=== PATIENT | female | born 1965 | race Hispanic/Latino ===

== ENCOUNTER 2018-08-19 20:04 | Emergency (ER) | payer OTHER ==
[2018-08-19 20:09] VITALS: BMI 40.7
[2018-08-19 20:26] VITALS: TEMP 98.1
[2018-08-19] MEDS ORDERED: DiphenhydrAMINE 50 mg/ml Inj IM STA (20:31)
[2018-08-19] MEDS ORDERED: DiphenhydrAMINE 50 mg/ml Inj ONE (20:34)
--- NOTE | 2018-08-19 20:35 | ED PDOC ---
HPI: Allergic Reaction Time Seen by Provider: 08/19/18 20:26 Chief Complaint (Nursing): Allergic Reaction History Per: Patient Additional Complaint(s): Pt. states when she woke up this morning she had a diffuse pruritic rash over her body which has progressively worsened. States she's been taking Benadryl 50mg PO without any relief (last dose was at 1400 today). Reports a hx of contact allergic reactions. States she ate clams yesterday which she usually does not eat. Denies throat swelling, chest pain, SOB, fever, chills, hx of anaphylactic reactions. Of note pt. states she has a scheduled appointment with a statement request clerk on Monday for a separate issue. Past Medical History Reviewed: Historical Data, Nursing Documentation, Vital Signs Vital Signs: Last Vital Signs Temp 98.1 F 08/19/18 20:25 Pulse 69 08/19/18 20:25 Resp 16 08/19/18 20:25 BP 130/82 08/19/18 20:25 Pulse Ox 98 08/19/18 20:25 Primary Care Provider: FAMILY PROVIDER,NO - Family History Family History: States: No Known Family Hx - Home Medications Home Medications: Ambulatory Orders Medication Instructions Recorded DiphenhydrAMINE [Benadryl] 50 mg PO Q6 PRN #16 cap 08/19/18 predniSONE [Prednisone] 60 mg PO DAILY #12 tab 08/19/18 - Allergies Allergies/Adverse Reactions: Allergies Allergy/AdvReac Type Severity Reaction Status Date / Time No Known Allergies Allergy Verified 08/19/18 20:23 Review of Systems ROS Statement: Except As Marked, All Systems Reviewed And Found Negative Skin: Positive for: Rash Physical Exam - Physical Exam Appears: Positive for: Well, Non-toxic, No Acute Distress Skin: Positive for: Normal Color, Warm, Rash (diffuse urticarial rash throughout entire body including face with blanching without vesicles or pustules) Eye Exam: Positive for: EOMI, PERRL ENT: Positive for: Normal ENT Inspection. Negative for: Tonsillar Swelling Cardiovascular/Chest: Positive for: Regular Rate, Rhythm Respiratory: Positive for: Normal Breath Sounds. Negative for: Stridor, Wheezing, Respiratory Distress Neurological/Psych: Positive for: Awake, Alert, Oriented (x3) - ECG O2 Sat by Pulse Oximetry: 98 - Progress ED Course And Treament: Benadryl 50mg IM, prednisone 60mg PO, pepcid 20mg PO ordered. Re-evaluation Time: 21:00 (Offered Benadryl IV but refused. Denies chest pain, SOB, throat swelling. ) Condition: Re-examined, Improving,but remains with symptoms Disposition - Clinical Impression Clinical Impression: Urticaria - Patient ED Disposition Is Patient to be Admitted: No - Disposition Referrals: [facility] [Outside] Disposition: Routine/Home Disposition Time: 21:00 Condition: IMPROVED Additional Instructions: FOLLOW UP WITH YOUR GLASS WASHER ON MONDAY PREVIOUSLY SCHEDULED RETURN TO ED IMMEDIATELY IF SYMPTOMS WORSEN AVOID EATING SEAFOOD UNTIL CLEARED BY YOUR GLASS WASHER SUSANA CAREY, thank you for letting us take care of you today. Your provider was Miah Oglesby MD and you were treated for POSS ALLERGIC REACTION. The emergency medical care you received today was directed at your acute symptoms. If you were prescribed any medication, please fill it and take as directed. It may take several days for your symptoms to resolve. Return to the Emergency Department if your symptoms worsen, do not improve, or if you have any other problems. Please contact your doctor or call one of the physicians/clinics you have been referred to that are listed on the Patient Visit Information form that is included in your discharge packet. Bring any paperwork you were given at discharge with you along with any medications you are taking to your follow up visit. Our treatment cannot replace ongoing medical care by a primary care provider outside of the emergency department. Thank you for allowing the [facility] team to be part of your care today. If you had an X-Ray or CT scan: A Radiologist will review the ED reading if any change in treatment is needed we will contact you. If you had a blood, urine, or wound culture: It will take several days for the results, if any change in treatment is needed we will contact you. If you had an STI test: It will take 48 hours for the results. Please call after 1 week if you have not heard back. Prescriptions: DiphenhydrAMINE [Benadryl] 50 mg PO Q6 PRN #16 cap PRN Reason: ITCHING OR RASH predniSONE [Prednisone] 60 mg PO DAILY #12 tab Instructions: Hives (DC) Forms: [facility] ([place]), [facility] ED School/Work Excuse
[2018-08-19 22:06] VITALS: BP 127/83; PULSE 72; RESP 18
[2018-08-19 23:45] VITALS: O2SAT 98
== END 2018-08-19 21:58 | disposition home or self-care (01) ==
LOC: H.ER 20:04
DX: L50.0 Allergic urticaria (principal)
CPT/HCPCS: 96372; 99283; J1200